=== PATIENT | female | born 1960 | race Caucasian/White ===

== ENCOUNTER 2017-09-21 09:26 | Day surgery (SDC) | payer OTHER ==
[2017-07-22 11:30] VITALS: BMI 26.6
[2017-09-21] MEDS ORDERED: Lactated Ringer's 1,000 ML IV ONE (10:42)
[2017-09-21 10:53] VITALS: TEMP 97.9
[2017-09-21] MEDS ORDERED: Lidocaine 2% MPF (5 ml) Inj ONE (11:49)
[2017-09-21] MEDS ORDERED: Propofol 10 mg/ml Inj (20 ML) ONE (11:49)
[2017-09-21 12:19] VITALS: RESP 16
[2017-09-21 12:30] VITALS: BP 111/65; PULSE 83; O2SAT 100
== END 2017-09-21 12:55 | disposition home or self-care (01) ==
LOC: H.ENDO 09:26
PROVIDERS: ATTEND Internal Medicine Gastroenterology
DX: Z12.11 Encounter for screening for malignant neoplasm of colon (principal); E03.9 Hypothyroidism, unspecified; K92.2 Gastrointestinal hemorrhage, unspecified; K64.8 Other hemorrhoids
CPT/HCPCS: 45382; J2704; J7120